=== PATIENT | female | born 1970 | race African-American/Black ===

== ENCOUNTER 2016-11-10 12:20 | Emergency (ER) | payer OTHER ==
[~2016-11-10] VITALS: Ht 165.1 cm; Wt 70.0 kg
[~2016-11-10 12:20] MED LIST: AMIT25TA9 PO; CARI350T PO; DIAZ-56 PO; FAMO20TA8 PO; GABA-531 PO; HYDR200T35 PO; HYDR4TAB56 PO; IBUP-1510 PO; P20 PO; ZOLP10TA6 PO
[2016-11-10 14:17] LABS: BASOPHILS % 0.7 % (0.0-2.0); EOSINOPHILS % 1.1 % (0.0-5.0); HEMATOCRIT. 36.7 % (36.0-48.0); HEMOGLOBIN. 12.1 g/dL (12.0-16.0); LYMPHOCYTES % 31.7 % (20.0-50.0); MEAN CORPUSCULAR HEMOGLOBIN 27.5 pg (28.0-32.0); MEAN CORPUSCULAR HGB CONC 32.9 g/dL (31.0-37.0); MEAN CORPUSCULAR VOLUME 83.6 fL (81.0-99.0); MEAN PLATELET VOLUME 7.5 fl (7.4-10.4); MONOCYTES % 6.9 % (2.0-8.0); NEUTROPHILS % 59.6 % (40.0-76.0); PLATELET 240 x1000/uL (130-400); RED BLOOD CELL COUNT 4.39 mill/uL (4.2-5.4); RED CELL DISTRIBUTION WIDTH 16.3 % (11.6-14.6); WHITE BLOOD COUNT 9.3 x1000/uL (4.5-11.0)
[2016-11-10 14:26] LABS: PROTHROMBIN TIME 10.5 sec
[2016-11-10 14:29] LABS: CHLORIDE 113 mEq/L (98-107); INDEX HEMOLYSI 1 (1-3); INDEX ICTERIC 1 (1-4); INDEX LIPEMIC 1 (1-3)
[2016-11-10 14:36] LABS: ALBUMIN 3.5 g/dL (3.4-5.0); ANION GAP 14; CALCIUM 8.9 mg/dL (8.5-10.1); CARBON DIOXIDE 21 mEq/L (21-32); LIPASE 266 IU/L (73-393); UREA NITROGEN BLOOD 16 mg/dL (7-21)
[2016-11-10 14:39] LABS: ALANINE AMINOTRANSFERASE 15 IU/L (13-61); eGFR 53 mL/min (>60)
[2016-11-10] MEDS ORDERED: HYDROCODONE/ACETAMINOPHEN 5/325MG TABLET PO ONE (15:45)
[2016-11-10 15:51] VITALS: BP 110/71
[2016-11-10 19:54] LABS: CLARITY URINE TURBID (CLEAR); COLOR URINE YELLOW (YELLOW); GLUCOSE URINE NEGATIVE (NEGATIVE); KETONES URINE NEGATIVE (NEGATIVE); LEUKOCYTE ESTERASE URINE 3+ (NEGATIVE); NITRITE URINE NEGATIVE (NEGATIVE); OCCULT BLOOD URINE 3+ (NEGATIVE); PH URINE 5.5 (4.5-8.0); PROTEIN URINE 1+ (NEGATIVE); SPECIFIC GRAVITY URINE 1.025 (1.005-1.030); UROBILINOGEN URINE 0.2 E.U./dL (0.2-1.0)
[2016-11-10 20:04] LABS: *AMPHETAMINES SCREEN URINE NEGATIVE (NEGATIVE); *BARBITURATES SCREEN URINE NEGATIVE (NEGATIVE); *BENZODIAZEPINES SCREEN URINE NEGATIVE (NEGATIVE); *COCAINE SCREEN URINE NEGATIVE (NEGATIVE); ECSTASY MDMA SCREEN URINE NEGATIVE (NEGATIVE); METHADONE URINE SCREEN NEGATIVE (NEGATIVE); OPIATES URINE SCREEN NEGATIVE (NEGATIVE); PHENCYCLIDINE URINE SCREEN NEGATIVE (NEGATIVE)
[2016-11-10 20:07] LABS: CANNABINOID URINE SCREEN PRESUMTIVE POSITIVE (NEGATIVE)
[2016-11-10 20:10] LABS: WBC URINE 25-50 /hpf (0-2)
[2016-11-10 20:11] LABS: BACTERIA URINE 1+; SQUAMOUS EPITHELIAL CELL URINE 1+ /lpf (RARE/1+)
== END 2016-11-10 16:03 | disposition home or self-care (01) ==
LOC: ER 12:22
DX: T63.301A Toxic effect of unspecified spider venom, accidental (unintentional), initial encounter (principal); N39.0 Urinary tract infection, site not specified; G89.29 Other chronic pain; M32.9 Systemic lupus erythematosus, unspecified; I10 Essential (primary) hypertension; M19.90 Unspecified osteoarthritis, unspecified site; F17.200 Nicotine dependence, unspecified, uncomplicated; F12.10 Cannabis abuse, uncomplicated; Z90.49 Acquired absence of other specified parts of digestive tract; Z90.710 Acquired absence of both cervix and uterus; Z88.1 Allergy status to other antibiotic agents; Z88.2 Allergy status to sulfonamides; Z88.8 Allergy status to other drugs, medicaments and biological substances; Z79.899 Other long term (current) drug therapy; W57.XXXA Bitten or stung by nonvenomous insect and other nonvenomous arthropods, initial encounter; Y93.89 Activity, other specified; Y99.8 Other external cause status; Y92.89 Other specified places as the place of occurrence of the external cause
CPT/HCPCS: 36415; 80053; 80305; 81001; 81025; 83690; 85025; 85610; 99284

== ENCOUNTER 2016-12-09 14:54 | Emergency (ER) | payer OTHER ==
[~2016-12-09] VITALS: Ht 165.1 cm; Wt 68.0 kg
[2016-12-09] MEDS ORDERED: MORPHINE SULFATE 4 MG/ML CPJ (NOT FOR IM USE) IV STA (16:02)
[2016-12-09] MEDS ORDERED: ONDANSETRON HCL 4MG/2ML VIAL IV STA (16:02)
[2016-12-09] MEDS ORDERED: DIPHENHYDRAMINE 50MG/ML VIAL IV ONE ×2 (16:15→17:45)
[2016-12-09 16:23] LABS: BASOPHILS % 0.7 % (0.0-2.0); EOSINOPHILS % 1.1 % (0.0-5.0); HEMATOCRIT. 38.8 % (36.0-48.0); HEMOGLOBIN. 12.6 g/dL (12.0-16.0); MEAN CORPUSCULAR HEMOGLOBIN 27.2 pg (28.0-32.0); MEAN CORPUSCULAR VOLUME 83.7 fL (81.0-99.0); MEAN PLATELET VOLUME 7.7 fl (7.4-10.4); MONOCYTES % 8.4 % (2.0-8.0); NEUTROPHILS % 50.8 % (40.0-76.0); PLATELET 247 x1000/uL (130-400); RED BLOOD CELL COUNT 4.64 mill/uL (4.2-5.4)
[2016-12-09 16:34] LABS: HCG SCREEN NEGATIVE
[2016-12-09] MEDS ORDERED: MORPHINE SULFATE 4 MG/ML CPJ (NOT FOR IM USE) IV ONE (17:30)
[2016-12-09] MEDS ORDERED: DIPHENHYDRAMINE 50MG/ML VIAL ONE (17:53)
[2016-12-09] MEDS ORDERED: HYDROCODONE/ACETAMINOPHEN 5/325MG TABLET PO ONE (18:30)
[2016-12-09 18:45] VITALS: BP 144/93
== END 2016-12-09 19:30 | disposition home or self-care (01) ==
LOC: ER 19:05
DX: M32.9 Systemic lupus erythematosus, unspecified (principal); I10 Essential (primary) hypertension; R52 Pain, unspecified; F17.210 Nicotine dependence, cigarettes, uncomplicated; F12.90 Cannabis use, unspecified, uncomplicated; Z96.651 Presence of right artificial knee joint; Z88.1 Allergy status to other antibiotic agents; Z88.3 Allergy status to other anti-infective agents; Z88.2 Allergy status to sulfonamides; Z98.890 Other specified postprocedural states; Z90.49 Acquired absence of other specified parts of digestive tract; Z90.710 Acquired absence of both cervix and uterus
CPT/HCPCS: 36415; 80048; 84703; 85025; 96374; 96375; 96376; 99284; J1200; J2270; J2405

== ENCOUNTER 2017-06-09 21:08 | Emergency (ER) | payer OTHER ==
[~2017-06-09] VITALS: Ht 152.4 cm; Wt 71.0 kg
[~2017-06-09 21:08] MED LIST changes: -DIAZ-56 PO; +DIAZ5TAB PO; -IBUP-1510 PO; +IBUP-2030 PO
[2017-06-09] MEDS ORDERED: SODIUM CHLORIDE 0.9% 1,000 ML IV ONE (22:35)
[2017-06-09] MEDS ORDERED: KETOROLAC 30MG/ML VIAL IV STA (22:35)
[2017-06-09 23:02] LABS: BASOPHILS % 0.9 % (0.0-2.0); HEMATOCRIT. 37.6 % (36.0-48.0); HEMOGLOBIN. 12.7 g/dL (12.0-16.0); LYMPHOCYTES % 33.4 % (20.0-50.0); MEAN CORPUSCULAR HEMOGLOBIN 28.3 pg (28.0-32.0); MEAN CORPUSCULAR VOLUME 84.1 fL (81.0-99.0); MEAN PLATELET VOLUME 7.3 fl (7.4-10.4); MONOCYTES % 7.9 % (2.0-8.0); NEUTROPHILS % 56.8 % (40.0-76.0); PLATELET 281 x1000/uL (130-400); RED BLOOD CELL COUNT 4.47 mill/uL (4.2-5.4); RED CELL DISTRIBUTION WIDTH 15.1 % (11.6-14.6)
[2017-06-09 23:07] LABS: CHLORIDE 113 mEq/L (98-107); PROTHROMBIN TIME 10.1 sec (9.4-11.6)
[2017-06-09 23:14] LABS: CARBON DIOXIDE 22 mEq/L (21-32)
[2017-06-09 23:15] LABS: TROPONIN I < 0.02 ng/mL (0.00-0.04)
[2017-06-09 23:16] LABS: *AMPHETAMINES SCREEN URINE NEGATIVE (NEGATIVE); *BARBITURATES SCREEN URINE NEGATIVE (NEGATIVE); *BENZODIAZEPINES SCREEN URINE NEGATIVE (NEGATIVE); *COCAINE SCREEN URINE NEGATIVE (NEGATIVE); METHADONE URINE SCREEN NEGATIVE (NEGATIVE); OPIATES URINE SCREEN NEGATIVE (NEGATIVE); PHENCYCLIDINE URINE SCREEN NEGATIVE (NEGATIVE)
[2017-06-09 23:17] LABS: CANNABINOID URINE SCREEN PRESUMTIVE POSITIVE (NEGATIVE)
[2017-06-10] MEDS ORDERED: HYDROCODONE/ACETAMINOPHEN 5/325MG TABLET PO ONE
[2017-06-10] MEDS ORDERED: MAGNESIUM/ALUMINUM HYDROXIDE/SIMETHICONE 30ML UDC PO ONE (01:15)
[2017-06-10] MEDS ORDERED: FAMOTIDINE 20MG TABLET PO ONE (01:15)
[2017-06-10] MEDS ORDERED: SODIUM CHLORIDE 0.9% 1,000 ML IV ONE (03:15)
[2017-06-10 03:53] VITALS: BP 129/91
[2017-06-10] MEDS ORDERED: IOHEXOL-350 100 ML BOTTLE ONE (04:12)
== END 2017-06-10 05:12 | disposition home or self-care (01) ==
LOC: ER 21:49
DX: R07.9 Chest pain, unspecified (principal); N28.9 Disorder of kidney and ureter, unspecified; I10 Essential (primary) hypertension; M19.90 Unspecified osteoarthritis, unspecified site; M32.9 Systemic lupus erythematosus, unspecified; F17.200 Nicotine dependence, unspecified, uncomplicated; F12.10 Cannabis abuse, uncomplicated; Z88.1 Allergy status to other antibiotic agents; Z88.2 Allergy status to sulfonamides; Z88.3 Allergy status to other anti-infective agents; Z90.710 Acquired absence of both cervix and uterus; Z96.649 Presence of unspecified artificial hip joint
CPT/HCPCS: 36415; 71010; 71275; 80053; 80305; 81025; 84484; 85025; 85610; 93005; 96361; 96374; 99291; J1885; J7030; Q9967

== ENCOUNTER 2018-09-01 10:48 | Emergency (ER) | payer OTHER ==
[~2018-09-01] VITALS: Ht 165.1 cm; Wt 70.0 kg
[~2018-09-01 10:48] MED LIST changes: -CARI350T PO; +DIPH25CA83 PO; +OXYC-105 PO; +S350 PO
[2018-09-01] MEDS ORDERED: MORPHINE SULFATE 4 MG/ML CPJ (NOT FOR IM USE) IV STA (15:46)
[2018-09-01] MEDS ORDERED: SODIUM CHLORIDE 0.9% 1,000 ML IV ONE (15:46)
[2018-09-01] MEDS ORDERED: ONDANSETRON HCL 4MG/2ML INJ IV STA (15:46)
[2018-09-01] MEDS ORDERED: ASPIRIN 81MG TABLET PO ONE (16:00)
[2018-09-01 16:46] LABS: BASOPHILS % 0.7 % (0.0-2.0); EOSINOPHILS % 0.9 % (0.0-5.0); HEMOGLOBIN. 12.6 g/dL (12.0-16.0); LYMPHOCYTES % 37.6 % (20.0-50.0); MEAN CORPUSCULAR HEMOGLOBIN 27.5 pg (28.0-32.0); MEAN CORPUSCULAR VOLUME 85.1 fL (81.0-99.0); MEAN PLATELET VOLUME 7.8 fl (7.4-10.4); MONOCYTES % 5.8 % (2.0-8.0); PLATELET 278 x1000/uL (130-400); RED BLOOD CELL COUNT 4.58 mill/uL (4.2-5.4); RED CELL DISTRIBUTION WIDTH 16.2 % (11.6-14.6)
[2018-09-01 16:50] LABS: CHLORIDE 115 mEq/L (98-107)
[2018-09-01 16:54] LABS: D-DIMER 0.41 mg/L FEU (<0.50); HCG SCREEN NEGATIVE; PARTIAL THROMBOPLASTIN TIME 27.2 sec (23.4-31.0); PROTHROMBIN TIME 9.9 sec (9.1-11.1)
[2018-09-01] MEDS: NITROGLYCERIN 0.4MG TABLET SL SL PRN ×2 (16:55→22:04)
[2018-09-01 17:08] LABS: CLARITY URINE CLEAR (CLEAR); COLOR URINE YELLOW (YELLOW); KETONES URINE NEGATIVE (NEGATIVE); LEUKOCYTE ESTERASE URINE 2+ (NEGATIVE); NITRITE URINE NEGATIVE (NEGATIVE); OCCULT BLOOD URINE NEGATIVE (NEGATIVE); PH URINE 5.5 (4.5-8.0); PROTEIN URINE 1+ (NEGATIVE); SPECIFIC GRAVITY URINE 1.016 (1.005-1.030); UROBILINOGEN URINE 0.2 E.U./dL (0.2-1.0)
[2018-09-01] MEDS ORDERED: CEFTRIAXONE 1 G PREMIX 50 ML IV ONE (17:30)
[2018-09-01] MEDS ORDERED: MAGNESIUM/ALUMINUM HYDROXIDE/SIMETHICONE 30ML UDC PO PRN (21:45)
[2018-09-01] MEDS ORDERED: ACETAMINOPHEN 325MG TABLET PO PRN (21:45)
[2018-09-01] MEDS ORDERED: CLONIDINE 0.1MG TABLET PO PRN (21:45)
[2018-09-01] MEDS ORDERED: ENOXAPARIN 40MG/0.4ML SYR SUBCUT SCH (21:45)
[2018-09-01] MEDS ORDERED: HYDROMORPHONE HCL/PF 2MG/ML CPJ IV PRN (21:45)
[2018-09-01] MEDS ORDERED: ONDANSETRON HCL 4MG/2ML INJ IV PRN (21:45)
[2018-09-01] MEDS ORDERED: HYDROCODONE/ACETAMINOPHEN 10/325MG TABLET PO PRN (21:45)
[2018-09-01] MEDS ORDERED: LORAZEPAM 2MG/ML CPJ IV PRN (21:45)
[2018-09-01] MEDS ORDERED: GUAIFENESIN 200MG/10ML SUGAR FREE UDC PO PRN (21:45)
[2018-09-01] MEDS ORDERED: HYDRALAZINE 20MG/ML VIAL IV PRN (21:45)
[2018-09-01] MEDS ORDERED: DOCUSATE SODIUM 100MG CAPSULE PO PRN (21:45)
[2018-09-01] MEDS ORDERED: IPRATROPIUM/ALBUTEROL 0.5-3(2.5)MG/3ML NEB INH PRN (21:45)
[2018-09-01] MEDS ORDERED: SODIUM CHLORIDE 0.9% INJ 3ML FLUSH IVF SCH (22:00)
[2018-09-01 22:11] VITALS: BP 116/68
[2018-09-02] MEDS ORDERED: ASPIRIN 81MG EC TABLET PO SCH (09:00)
== END 2018-09-01 22:58 | disposition short-term general hospital (02) ==
LOC: ER 10:48 → EDBEDREQ 17:35 → ER 22:58 → CANBEDREQ 23:07
DX: R07.89 Other chest pain (principal); I10 Essential (primary) hypertension; M32.9 Systemic lupus erythematosus, unspecified; F17.210 Nicotine dependence, cigarettes, uncomplicated; E86.0 Dehydration; F12.10 Cannabis abuse, uncomplicated; M19.90 Unspecified osteoarthritis, unspecified site; J45.909 Unspecified asthma, uncomplicated; Z96.649 Presence of unspecified artificial hip joint; Z90.710 Acquired absence of both cervix and uterus; Z88.3 Allergy status to other anti-infective agents; Z88.2 Allergy status to sulfonamides; Z87.19 Personal history of other diseases of the digestive system
CPT/HCPCS: 36415; 71045; 80053; 81003; 83880; 84484; 84703; 85025; 85379; 85610; 85730; 93005; 96361; 96365; 96375; 96376; 99284; J0696; J2270; J2405; J7030; 99285

== ENCOUNTER 2018-12-19 11:40 | Emergency (ER) | payer OTHER ==
[~2018-12-19] VITALS: Ht 165.1 cm; Wt 72.7 kg
[2018-12-19 14:38] LABS: BASOPHILS % 0.4 % (0.0-2.0); EOSINOPHILS % 1.3 % (0.0-5.0); HEMATOCRIT. 39.2 % (36.0-48.0); HEMOGLOBIN. 12.6 g/dL (12.0-16.0); LYMPHOCYTES % 35.9 % (20.0-50.0); MEAN CORPUSCULAR HEMOGLOBIN 27.5 pg (28.0-32.0); MEAN CORPUSCULAR VOLUME 85.4 fL (81.0-99.0); MEAN PLATELET VOLUME 7.8 fl (7.4-10.4); MONOCYTES % 6.8 % (2.0-8.0); NEUTROPHILS % 55.6 % (40.0-76.0); PLATELET 254 x1000/uL (130-400); RED BLOOD CELL COUNT 4.59 mill/uL (4.2-5.4); RED CELL DISTRIBUTION WIDTH 15.4 % (11.6-14.6)
[2018-12-19 14:43] LABS: CHLORIDE 117 mEq/L (98-107)
[2018-12-19] MEDS ORDERED: MORPHINE SULFATE 4 MG/ML CPJ (NOT FOR IM USE) IV ONE (14:45)
[2018-12-19] MEDS ORDERED: KETOROLAC 30MG/ML VIAL IV ONE (14:45)
[2018-12-19] MEDS ORDERED: DIPHENHYDRAMINE 50MG/ML VIAL IV ONE (15:15)
[2018-12-19] MEDS ORDERED: HYDROCODONE/ACETAMINOPHEN 5/325MG TABLET PO ONE (17:45)
[2018-12-19 20:00] VITALS: BP 123/67
== END 2018-12-19 21:05 | disposition short-term general hospital (02) ==
LOC: ER 11:40
DX: R07.89 Other chest pain (principal); M19.90 Unspecified osteoarthritis, unspecified site; I10 Essential (primary) hypertension; M06.9 Rheumatoid arthritis, unspecified; Z88.1 Allergy status to other antibiotic agents; Z88.2 Allergy status to sulfonamides; Z88.8 Allergy status to other drugs, medicaments and biological substances; Z79.899 Other long term (current) drug therapy; Z96.643 Presence of artificial hip joint, bilateral
CPT/HCPCS: 36415; 71045; 80053; 83880; 84484; 85025; 93005; 96374; 96375; 99285; J1200; J1885; J2270

== ENCOUNTER 2019-03-11 19:37 | Emergency (ER) | payer OTHER ==
[~2019-03-11] VITALS: Ht 167.6 cm; Wt 73.0 kg
[2019-03-11] MEDS ORDERED: MORPHINE SULFATE 4 MG/ML CPJ (NOT FOR IM USE) IV STA (20:11)
[2019-03-11] MEDS ORDERED: SODIUM CHLORIDE 0.9% 1,000 ML IV ONE (20:11)
[2019-03-11] MEDS ORDERED: ONDANSETRON HCL 4MG/2ML INJ IV STA (20:11)
[2019-03-11] MEDS ORDERED: ASPIRIN 81MG TABLET PO ONE (20:15)
[2019-03-11] MEDS ORDERED: NITROGLYCERIN 0.4MG TABLET SL SL PRN (20:15)
[2019-03-11] MEDS ORDERED: HYDROMORPHONE HCL/PF 2MG/ML CPJ IV ONE (21:45)
[2019-03-11 21:46] LABS: HCG SCREEN NEGATIVE
[2019-03-11 21:47] LABS: CHLORIDE 114 mEq/L (98-107)
[2019-03-11 21:50] LABS: BASOPHILS % 0.7 % (0.0-2.0); EOSINOPHILS % 0.7 % (0.0-5.0); HEMATOCRIT. 34.6 % (36.0-48.0); HEMOGLOBIN. 11.5 g/dL (12.0-16.0); LYMPHOCYTES % 39.9 % (20.0-50.0); MEAN CORPUSCULAR HEMOGLOBIN 27.7 pg (28.0-32.0); MEAN CORPUSCULAR VOLUME 83.4 fL (81.0-99.0); MEAN PLATELET VOLUME 7.9 fl (7.4-10.4); MONOCYTES % 7.8 % (2.0-8.0); NEUTROPHILS % 50.9 % (40.0-76.0); PLATELET 262 x1000/uL (130-400); RED BLOOD CELL COUNT 4.14 mill/uL (4.2-5.4); RED CELL DISTRIBUTION WIDTH 15.7 % (11.6-14.6)
[2019-03-11 21:54] LABS: D-DIMER 1.2 mg/L FEU (<0.50); PARTIAL THROMBOPLASTIN TIME 24.4 sec (23.4-31.0); PROTHROMBIN TIME 9.8 sec (9.6-11.0)
[2019-03-11 23:35] VITALS: BP 140/71
== END 2019-03-12 00:26 | disposition short-term general hospital (02) ==
LOC: ER 19:37 → CANBEDREQ 23:49 → ER 03-12 00:26
DX: R07.89 Other chest pain (principal); I10 Essential (primary) hypertension; R94.39 Abnormal result of other cardiovascular function study; M32.9 Systemic lupus erythematosus, unspecified; F12.10 Cannabis abuse, uncomplicated; F17.210 Nicotine dependence, cigarettes, uncomplicated; Z90.49 Acquired absence of other specified parts of digestive tract; Z88.3 Allergy status to other anti-infective agents; Z88.2 Allergy status to sulfonamides
CPT/HCPCS: 36415; 71045; 80053; 83690; 83880; 84484; 84703; 85025; 85379; 85610; 85730; 93005; 96374; 96375; 99285; J1170; J2270; J2405; J7030; Z7610

== ENCOUNTER 2019-08-30 11:27 | Emergency (ER) | payer MEDICAID, OTHER ==
[~2019-08-30] VITALS: Ht 162.6 cm; Wt 61.0 kg
[~2019-08-30 11:27] MED LIST changes: +CARI350T28 PO; -S350 PO
[2019-08-30] MEDS ORDERED: HYDROCODONE/ACETAMINOPHEN 5/325MG TABLET PO ONE (16:15)
[2019-08-30 17:24] VITALS: BP 172/95
== END 2019-08-30 17:31 | disposition home or self-care (01) ==
LOC: ER 11:27
DX: G89.29 Other chronic pain (principal); M54.9 Dorsalgia, unspecified; M79.641 Pain in right hand; I10 Essential (primary) hypertension; F12.10 Cannabis abuse, uncomplicated; Z88.1 Allergy status to other antibiotic agents; Z88.8 Allergy status to other drugs, medicaments and biological substances; Z88.2 Allergy status to sulfonamides; Z79.899 Other long term (current) drug therapy; Z90.49 Acquired absence of other specified parts of digestive tract; Z98.890 Other specified postprocedural states
CPT/HCPCS: 72148; 73110; 73130; 99285

== ENCOUNTER 2019-10-06 09:51 | Emergency (ER) | payer MEDICAID ==
[~2019-10-06] VITALS: Ht 170.2 cm; Wt 69.0 kg
[2019-10-06] MEDS ORDERED: MAGNESIUM/ALUMINUM HYDROXIDE/SIMETHICONE 30ML UDC PO ONE (11:15)
[2019-10-06] MEDS ORDERED: DICYCLOMINE 10 MG/5 ML ORAL SYR PO ONE (11:15)
[2019-10-06] MEDS ORDERED: VISCOUS LIDOCAINE 2% 15 ML UDC PO ONE (11:15)
[2019-10-06 11:48] LABS: CHLORIDE 110 mEq/L (98-107)
[2019-10-06 11:53] LABS: BASOPHILS % 0.5 % (0.0-2.0); EOSINOPHILS % 0.5 % (0.0-5.0); HEMATOCRIT. 40.4 % (36.0-48.0); LYMPHOCYTES % 34.7 % (20.0-50.0); MEAN CORPUSCULAR HEMOGLOBIN 27.2 pg (28.0-32.0); MEAN CORPUSCULAR VOLUME 84.4 fL (81.0-99.0); MEAN PLATELET VOLUME 8.3 fl (7.4-10.4); MONOCYTES % 7.3 % (2.0-8.0); PLATELET 251 x1000/uL (130-400); RED BLOOD CELL COUNT 4.79 mill/uL (4.2-5.4); RED CELL DISTRIBUTION WIDTH 15.6 % (11.6-14.6)
[2019-10-06] MEDS ORDERED: ACETAMINOPHEN 325MG TABLET PO ONE (12:00)
[2019-10-06] MEDS ORDERED: MORPHINE SULFATE 4 MG/ML CPJ (NOT FOR IM USE) IV STA (12:51)
[2019-10-06] MEDS ORDERED: ONDANSETRON HCL 4MG/2ML INJ IV STA (12:51)
[2019-10-06] MEDS ORDERED: DIPHENHYDRAMINE 25MG CAPSULE PO ONE (13:15)
[2019-10-06 13:41] VITALS: BP 168/90
== END 2019-10-06 13:46 | disposition home or self-care (01) ==
LOC: ER 10:00
DX: R07.89 Other chest pain (principal); I10 Essential (primary) hypertension; M32.9 Systemic lupus erythematosus, unspecified; F12.10 Cannabis abuse, uncomplicated; F99 Mental disorder, not otherwise specified; Z90.49 Acquired absence of other specified parts of digestive tract; Z88.1 Allergy status to other antibiotic agents; Z88.5 Allergy status to narcotic agent; Z88.2 Allergy status to sulfonamides
CPT/HCPCS: 36415; 71045; 80053; 83690; 84484; 85025; 93005; 96374; 96375; 99285; J2270; J2405; Q0163

== ENCOUNTER 2020-08-14 09:00 | Emergency (ER) | payer MEDICAID, OTHER ==
[~2020-08-14] VITALS: Ht 167.6 cm; Wt 77.5 kg
[~2020-08-14 09:00] MED LIST changes: -GABA-531 PO; +GABA-532 PO
[2020-08-14] MEDS ORDERED: SODIUM CHLORIDE 0.9% 1,000 ML IV ONE ×2 (10:30→14:30)
[2020-08-14] MEDS ORDERED: ONDANSETRON HCL 4MG/2ML INJ IM ONE ×2 (10:30→11:15)
[2020-08-14] MEDS ORDERED: FENTANYL CITRATE/PF 50MCG/ML 2ML VIAL IV ONE (11:15)
[2020-08-14 12:08] LABS: BASOPHILS % 0.2 % (0.0-2.0); HEMATOCRIT. 36.9 % (36.0-48.0); HEMOGLOBIN. 12.2 g/dL (12.0-16.0); MEAN CORPUSCULAR HEMOGLOBIN 27.2 pg (28.0-32.0); MEAN CORPUSCULAR VOLUME 82.4 fL (81.0-99.0); MEAN PLATELET VOLUME 8.2 fl (7.4-10.4); MONOCYTES % 4.1 % (2.0-8.0); NEUTROPHILS % 80.7 % (40.0-76.0); PLATELET 183 x1000/uL (130-400); RED BLOOD CELL COUNT 4.48 mill/uL (4.2-5.4); RED CELL DISTRIBUTION WIDTH 15.2 % (11.6-14.6)
[2020-08-14 12:16] LABS: CHLORIDE 111 mEq/L (98-107)
[2020-08-14 12:28] LABS: CREATINE KINASE 94 IU/L (26-192)
[2020-08-14] MEDS ORDERED: IOHEXOL-350 100 ML BOTTLE ONE (14:04)
[2020-08-14] MEDS ORDERED: ONDANSETRON HCL 4MG/2ML INJ IV ONE (14:30)
[2020-08-14] MEDS ORDERED: ENOXAPARIN 40MG/0.4ML SYR SUBCUT ONE (14:45)
[2020-08-14 15:46] LABS: *AMPHETAMINES SCREEN URINE NEGATIVE (NEGATIVE); *BARBITURATES SCREEN URINE NEGATIVE (NEGATIVE); *BENZODIAZEPINES SCREEN URINE NEGATIVE (NEGATIVE)
[2020-08-14 15:47] LABS: *COCAINE SCREEN URINE NEGATIVE (NEGATIVE); CANNABINOID URINE SCREEN PRESUMTIVE POSITIVE (NEGATIVE); METHADONE URINE SCREEN NEGATIVE (NEGATIVE); OPIATES URINE SCREEN NEGATIVE (NEGATIVE); PHENCYCLIDINE URINE SCREEN NEGATIVE (NEGATIVE)
[2020-08-14 16:47] VITALS: BP 165/92
== END 2020-08-14 18:00 | disposition short-term general hospital (02) ==
LOC: ER 09:00
DX: N17.8 Other acute kidney failure (principal); R11.10 Vomiting, unspecified; F41.9 Anxiety disorder, unspecified; J44.9 Chronic obstructive pulmonary disease, unspecified; I10 Essential (primary) hypertension; Z90.49 Acquired absence of other specified parts of digestive tract; Z79.899 Other long term (current) drug therapy; Z88.2 Allergy status to sulfonamides; Z88.6 Allergy status to analgesic agent
CPT/HCPCS: 36415; 71045; 74177; 80053; 80305; 82550; 83605; 83690; 83880; 84484; 85025; 85651; 86140; 93005; 96361; 96372; 96374; 99285; C9803; J1650; J2405; J3010; J7030; Q9967; U0003

== ENCOUNTER 2020-09-06 11:49 | Emergency (ER) | payer OTHER ==
[~2020-09-06] VITALS: Ht 165.1 cm; Wt 63.6 kg
[2020-09-06 11:50] VITALS: BP 146/99
== END 2020-09-06 13:10 | disposition home or self-care (01) ==
LOC: ER 11:49
DX: K12.0 Recurrent oral aphthae (principal); J96.90 Respiratory failure, unspecified, unspecified whether with hypoxia or hypercapnia; F32.9 Major depressive disorder, single episode, unspecified; M19.90 Unspecified osteoarthritis, unspecified site; I10 Essential (primary) hypertension; M32.9 Systemic lupus erythematosus, unspecified; F17.200 Nicotine dependence, unspecified, uncomplicated; Z88.2 Allergy status to sulfonamides; Z88.3 Allergy status to other anti-infective agents; Z88.6 Allergy status to analgesic agent; Z88.8 Allergy status to other drugs, medicaments and biological substances; Z86.16 Personal history of COVID-19; Z90.49 Acquired absence of other specified parts of digestive tract; Z20.822 Contact with and (suspected) exposure to COVID-19; Z99.81 Dependence on supplemental oxygen
CPT/HCPCS: 99283; Z7610

== ENCOUNTER 2021-08-30 12:07 | Emergency (ER) | payer OTHER ==
[~2021-08-30] VITALS: Ht 165.1 cm; Wt 75.0 kg
[2021-08-30] MEDS ORDERED: METHOCARBAMOL 500MG TABLET PO ONE (13:45)
[2021-08-30] MEDS ORDERED: OXYCODONE HCL/ACETAMINOPHEN 5/325MG TABLET PO ONE (13:45)
[2021-08-30] MEDS ORDERED: NAPR375T5 MT (16:43)
[2021-08-30] MEDS ORDERED: METH-773 MT (16:43)
[2021-08-30 17:05] VITALS: BP 150/88
== END 2021-08-30 17:17 | disposition home or self-care (01) ==
LOC: ER 12:07
DX: S20.219A Contusion of unspecified front wall of thorax, initial encounter (principal); I10 Essential (primary) hypertension; J45.909 Unspecified asthma, uncomplicated; Z88.6 Allergy status to analgesic agent; Z88.2 Allergy status to sulfonamides; Z79.899 Other long term (current) drug therapy; Z90.49 Acquired absence of other specified parts of digestive tract; Z86.73 Personal history of transient ischemic attack (TIA), and cerebral infarction without residual deficits; V49.9XXA Car occupant (driver) (passenger) injured in unspecified traffic accident, initial encounter; Y93.89 Activity, other specified; Y92.89 Other specified places as the place of occurrence of the external cause; Y99.8 Other external cause status
CPT/HCPCS: 71045; 93005; 99285

== ENCOUNTER 2022-11-27 06:01 | Emergency (ER) | payer OTHER ==
[~2022-11-27] VITALS: Ht 165.1 cm; Wt 69.0 kg
[~2022-11-27 06:01] MED LIST changes: +METH-773 MT; +NAPR375T5 MT
[2022-11-27] MEDS ORDERED: MORPHINE SULFATE 4 MG/ML CPJ (NOT FOR IM USE) IV ONE (06:15)
[2022-11-27] MEDS ORDERED: DIPHENHYDRAMINE 50MG/ML VIAL IV ONE (07:00)
[2022-11-27] MEDS ORDERED: LIDOCAINE 5% PATCH TOP STA (07:05)
[2022-11-27 08:27] LABS: BASOPHILS % 0.7 % (0.0-2.0); HEMATOCRIT. 37.6 % (36.0-48.0); HEMOGLOBIN. 12.3 g/dL (12.0-16.0); LYMPHOCYTES % 33.3 % (20.0-50.0); MEAN CORPUSCULAR HEMOGLOBIN 28.4 pg (28.0-32.0); MEAN CORPUSCULAR VOLUME 87.3 fL (81.0-99.0); MEAN PLATELET VOLUME 8.5 fl (7.4-10.4); MONOCYTES % 7.7 % (2.0-8.0); NEUTROPHILS % 57.3 % (40.0-76.0); PLATELET 232 x1000/uL (130-400); RED BLOOD CELL COUNT 4.31 mill/uL (4.2-5.4); RED CELL DISTRIBUTION WIDTH 16.2 % (11.6-14.6)
[2022-11-27 08:38] LABS: D-DIMER 1.11 mg/L FEU (<0.50); PROTHROMBIN TIME 10.3 sec (9.6-11.0)
[2022-11-27 08:45] LABS: CHLORIDE 120 mEq/L (98-107)
[2022-11-27] MEDS ORDERED: ACETAMINOPHEN 325MG TABLET PO ONE (08:45)
[2022-11-27 09:02] LABS: HCG SCREEN NEGATIVE
[2022-11-27 09:30] VITALS: BP 177/98
[2022-11-27] MEDS ORDERED: IOHEXOL-350 100 ML BOTTLE ONE (12:59)
== END 2022-11-27 14:00 | disposition left against medical advice (07) ==
LOC: ER 06:01 → CANBEDREQ 11:03 → ER 14:00
DX: M25.512 Pain in left shoulder (principal); J45.909 Unspecified asthma, uncomplicated; F32.9 Major depressive disorder, single episode, unspecified; I10 Essential (primary) hypertension; Z90.49 Acquired absence of other specified parts of digestive tract; Z79.899 Other long term (current) drug therapy
CPT/HCPCS: 36415; 71045; 71250; 80053; 84484; 84703; 85025; 85379; 85610; 96374; 96375; 99285; J1200; J2270; Q9967; Z7610

== ENCOUNTER 2022-12-28 07:12 | Emergency (ER) | payer OTHER ==
[~2022-12-28] VITALS: Ht 162.6 cm; Wt 77.0 kg
[2022-12-28] MEDS ORDERED: ONDANSETRON HCL 4MG/2ML INJ IV STA (07:19)
[2022-12-28] MEDS ORDERED: TRAMADOL 50MG TABLET PO ONE (09:00)
[2022-12-28] MEDS ORDERED: MORPHINE SULFATE 4 MG/ML CPJ (NOT FOR IM USE) IV ONE (09:15)
[2022-12-28] MEDS ORDERED: DIPHENHYDRAMINE 50MG/ML VIAL IV ONE (09:15)
[2022-12-28 09:41] LABS: BASOPHILS % 0.5 % (0.0-2.0); HEMATOCRIT. 37.3 % (36.0-48.0); HEMOGLOBIN. 12.3 g/dL (12.0-16.0); LYMPHOCYTES % 15.3 % (20.0-50.0); MEAN CORPUSCULAR VOLUME 85.3 fL (81.0-99.0); MEAN PLATELET VOLUME 8.3 fl (7.4-10.4); MONOCYTES % 6.1 % (2.0-8.0); NEUTROPHILS % 78.1 % (40.0-76.0); PLATELET 236 x1000/uL (130-400); RED BLOOD CELL COUNT 4.37 mill/uL (4.2-5.4); RED CELL DISTRIBUTION WIDTH 15.5 % (11.6-14.6)
[2022-12-28 09:53] LABS: CHLORIDE 119 mEq/L (98-107)
[2022-12-28 10:03] LABS: PROTHROMBIN TIME 10.3 sec (9.6-11.0)
[2022-12-28 10:10] LABS: HCG SCREEN NEGATIVE
[2022-12-28 12:00] VITALS: BP 150/85
== END 2022-12-28 12:39 | disposition short-term general hospital (02) ==
LOC: ER 07:35 → CANBEDREQ 10:06 → ER 12:39
DX: N28.89 Other specified disorders of kidney and ureter (principal); R10.84 Generalized abdominal pain; R11.2 Nausea with vomiting, unspecified; J45.909 Unspecified asthma, uncomplicated; F32.9 Major depressive disorder, single episode, unspecified; I10 Essential (primary) hypertension; Z86.73 Personal history of transient ischemic attack (TIA), and cerebral infarction without residual deficits; Z20.822 Contact with and (suspected) exposure to COVID-19
CPT/HCPCS: 36415; 74176; 80053; 83690; 84703; 85025; 85610; 87426; 93005; 96374; 96375; 99285; C9803; J1200; J2270; J2405; Z7610

== ENCOUNTER → 2023-04-29 | Emergency (ER) | payer OTHER ==
[~2023-04-29] VITALS: Ht 170.2 cm; Wt 54.0 kg
[~2023-04-29] MED LIST changes: +ACETAMINOPHEN 325MG TABLET PO ONE; +AMLO5TAB88 PO; -CARI350T28 PO; -HYDR4TAB56 PO; +IBUPROFEN 600MG TABLET PO ONE; +KEPP500 MT; -NAPR375T5 MT; -OXYC-105 PO; +QUET25TA PO; -ZOLP10TA6 PO
[2023-04-29 17:52] VITALS: BP 221/125; PULSE 76; RESP 20; TEMP 98.5; O2SAT 100
== END ==
LOC: ER 17:53
DX: S99.911A Unspecified injury of right ankle, initial encounter (principal); S69.92XA Unspecified injury of left wrist, hand and finger(s), initial encounter; I10 Essential (primary) hypertension; J45.909 Unspecified asthma, uncomplicated; Z88.6 Allergy status to analgesic agent; Z88.5 Allergy status to narcotic agent; Z88.1 Allergy status to other antibiotic agents; Z88.2 Allergy status to sulfonamides; Z79.899 Other long term (current) drug therapy; Z98.890 Other specified postprocedural states; Z86.73 Personal history of transient ischemic attack (TIA), and cerebral infarction without residual deficits; X50.0XXA Overexertion from strenuous movement or load, initial encounter; Y93.89 Activity, other specified; Y92.89 Other specified places as the place of occurrence of the external cause; Y99.8 Other external cause status
CPT/HCPCS: 73110; 73610; 73630; 99284

== ENCOUNTER 2023-11-21 09:26 | Emergency (ER) | payer OTHER, MEDICAID ==
[~2023-11-21] VITALS: Ht 165.1 cm; Wt 72.5 kg
[~2023-11-21 09:26] MED LIST changes: -ACETAMINOPHEN 325MG TABLET PO ONE; +ASPI-1406 PO; +ATOR20TA65 PO; -IBUPROFEN 600MG TABLET PO ONE; +LIDO700A30 TP; +OMEP20CA14 PO
[2023-11-21 09:29] VITALS: O2SAT 99
[2023-11-21 13:30] VITALS: BP 141/75; PULSE 80; TEMP 98
[2023-11-21 13:43] VITALS: RESP 16
[2023-11-21] MEDS: HYDROCODONE/ACETAMINOPHEN 5/325MG TABLET PO ONE (13:43)
== END 2023-11-21 13:52 | disposition home or self-care (01) ==
LOC: ER 09:26
DX: M79.671 Pain in right foot (principal); M79.672 Pain in left foot; M87.9 Osteonecrosis, unspecified; J45.909 Unspecified asthma, uncomplicated; F32.9 Major depressive disorder, single episode, unspecified; I10 Essential (primary) hypertension; Z86.73 Personal history of transient ischemic attack (TIA), and cerebral infarction without residual deficits
CPT/HCPCS: 73630; 99283

== ENCOUNTER 2024-03-03 09:37 | Emergency (ER) | payer MEDICAID ==
[~2024-03-03] VITALS: Ht 165.1 cm; Wt 77.0 kg
[~2024-03-03 09:37] MED LIST changes: -AMIT25TA9 PO; +AMLO10TA80 PO; -AMLO5TAB88 PO; -ATOR20TA65 PO; -DIAZ5TAB PO; -DIPH25CA83 PO; +DIPH50CA38 PO; -FAMO20TA8 PO; +FURO-151 MT; +HYDR50TA39 PO; +IBUP-2029 PO; -IBUP-2030 PO; -KEPP500 MT; -METH-773 MT; -OMEP20CA14 PO; +OXYC1TAB12 PO; -P20 PO; +PRED10TA PO; +QUET100T34 PO; -QUET25TA PO; +TIZA-204 PO
[2024-03-03 09:41] VITALS: BP 158/97; RESP 18; TEMP 98.6; O2SAT 98
== END 2024-03-03 14:30 | disposition home or self-care (01) ==
LOC: ER 09:37
DX: M79.671 Pain in right foot (principal); I10 Essential (primary) hypertension; Z88.6 Allergy status to analgesic agent; Z88.1 Allergy status to other antibiotic agents; Z88.2 Allergy status to sulfonamides; Z79.899 Other long term (current) drug therapy; Z98.890 Other specified postprocedural states; Z86.73 Personal history of transient ischemic attack (TIA), and cerebral infarction without residual deficits; Z79.82 Long term (current) use of aspirin
CPT/HCPCS: 93971; 73630; 99284; Z7610 ×2

== ENCOUNTER 2024-04-19 13:14 | Emergency (ER) | payer MEDICAID ==
[~2024-04-19] VITALS: Ht 165.1 cm; Wt 91.0 kg
[~2024-04-19 13:14] MED LIST changes: +ATOR80TA MT
[2024-04-19 13:33] VITALS: O2SAT 99
[2024-04-19 15:30] LABS: CHLORIDE 116 mEq/L (98-107); POTASSIUM 4.6 mEq/L (3.5-5.1); SODIUM 141 mEq/L (136-145)
[2024-04-19 15:31] LABS: CARBON DIOXIDE 18 mEq/L (21-32)
[2024-04-19 15:36] LABS: BASOPHILS % 0.6 % (0.0-2.0); EOSINOPHILS % 0.1 % (0.0-5.0); GLUCOSE 81 mg/dL (70-105); LYMPHOCYTES % 9.3 % (20.0-50.0); MEAN CORPUSCULAR HEMOGLOBIN 27.6 pg (28.0-32.0); MEAN CORPUSCULAR HGB CONC 31.4 g/dL (31.0-37.0); MEAN CORPUSCULAR VOLUME 87.9 fL (81.0-99.0); MONOCYTES % 2.5 % (2.0-8.0); NEUTROPHILS % 87.5 % (40.0-76.0); PLATELET 273 x1000/uL (130-400); RED BLOOD CELL COUNT 4.33 mill/uL (4.2-5.4); RED CELL DISTRIBUTION WIDTH 18.4 % (11.6-14.6); UREA NITROGEN BLOOD 27 mg/dL (9-23); WHITE BLOOD COUNT 13.3 x1000/uL (4.5-11.0)
[2024-04-19 15:37] LABS: TROPONIN I HIGH SENSITIVITY 27 ng/L (3.0-34)
[2024-04-19 15:40] LABS: HCG SCREEN NEGATIVE
[2024-04-19 15:42] LABS: INR 0.9; PROTHROMBIN TIME 10.3 sec (9.6-11.0)
[2024-04-19] MEDS: ACETAMINOPHEN 325MG TABLET PO ONE (16:00)
[2024-04-19] MEDS: LIDOCAINE 5% PATCH TOP SCH (16:00)
[2024-04-19 16:17] VITALS: BP 143/89; PULSE 93; RESP 16; TEMP 37.00296; O2SAT 96
[2024-04-22] MEDS ORDERED: P20 PO (15:55)
[2024-04-22] MEDS ORDERED: QUET300T20 PO (15:57)
[2024-04-22] MEDS ORDERED: AMLO5TAB88 PO (15:58)
[2024-04-22] MEDS ORDERED: BELI200A SUBCUT (16:02)
[2024-04-22] MEDS ORDERED: ONDA-239 PO (16:03)
== END 2024-04-19 17:15 | disposition home or self-care (01) ==
LOC: ER 13:14
DX: R07.89 Other chest pain (principal); I11.0 Hypertensive heart disease with heart failure; I50.9 Heart failure, unspecified; E78.5 Hyperlipidemia, unspecified; F19.90 Other psychoactive substance use, unspecified, uncomplicated; Z79.899 Other long term (current) drug therapy; Z85.528 Personal history of other malignant neoplasm of kidney; Z86.73 Personal history of transient ischemic attack (TIA), and cerebral infarction without residual deficits; Z88.1 Allergy status to other antibiotic agents; Z88.7 Allergy status to serum and vaccine; Z88.2 Allergy status to sulfonamides; Z98.890 Other specified postprocedural states
CPT/HCPCS: 36415; 71045; 80048; 83880; 84484; 84703; 85025; 93005; 99285

== ENCOUNTER 2024-06-20 08:42 | Emergency (ER) | payer MEDICAID ==
[~2024-06-20] VITALS: Ht 165.1 cm; Wt 84.0 kg
[~2024-06-20 08:42] MED LIST changes: -AMLO10TA80 PO; +AMLO5TAB88 PO; +AMOX1TAB16 PO; +ATOR-388 MT; -ATOR80TA MT; +BELI200A SUBCUT; -FURO-151 MT; +GABA-1180 PO; -GABA-532 PO; +ONDA-239 PO; +P20 PO; -PRED10TA PO; -QUET100T34 PO; +QUET300T20 PO
[2024-06-20 08:49] VITALS: TEMP 98.1; O2SAT 97
[2024-06-20 10:42] VITALS: BP 148/93; PULSE 106; RESP 18
[2024-06-20] MEDS: CELECOXIB 200MG CAPSULE PO ONE (10:42)
[2024-06-20] MEDS: HYDROCODONE/ACETAMINOPHEN 5/325MG TABLET PO PRN (10:42)
[2024-06-20] MEDS: DEXAMETHASONE 4MG/ML 1ML VIAL IM ONE (10:42)
[2024-06-20] MEDS ORDERED: TRAM50TA3 MT (10:50)
== END 2024-06-20 11:29 | disposition home or self-care (01) ==
LOC: ER 08:42
DX: S92.341A Displaced fracture of fourth metatarsal bone, right foot, initial encounter for closed fracture (principal); I10 Essential (primary) hypertension; M19.90 Unspecified osteoarthritis, unspecified site; F10.90 Alcohol use, unspecified, uncomplicated; Z79.82 Long term (current) use of aspirin; Z79.899 Other long term (current) drug therapy; Z86.73 Personal history of transient ischemic attack (TIA), and cerebral infarction without residual deficits; Z88.1 Allergy status to other antibiotic agents; Z88.2 Allergy status to sulfonamides; Z88.7 Allergy status to serum and vaccine; C80.1 Malignant (primary) neoplasm, unspecified; W18.41XA Slipping, tripping and stumbling without falling due to stepping on object, initial encounter; Y93.89 Activity, other specified; Y92.89 Other specified places as the place of occurrence of the external cause; Y99.8 Other external cause status
CPT/HCPCS: 73610; 73630; 29515; 96372; 99284; J1100; Z7610

== ENCOUNTER 2024-11-30 09:56 | Emergency (ER) | payer MEDICAID ==
[~2024-11-30] VITALS: Ht 165.1 cm; Wt 83.9 kg
[~2024-11-30 09:56] MED LIST changes: +TRAM50TA3 MT
[2024-11-30 09:58] VITALS: BP 142/108; TEMP 36.9; O2SAT 98
[2024-11-30 10:00] VITALS: PULSE 104; RESP 16; O2SAT 98
[2024-11-30 10:27] LABS: BASOPHILS % 0.7 % (0.0-2.0); EOSINOPHILS % 0.5 % (0.0-5.0); HEMATOCRIT. 36.5 % (36.0-48.0); MEAN CORPUSCULAR HEMOGLOBIN 29.5 pg (28.0-32.0); MEAN CORPUSCULAR HGB CONC 32.9 g/dL (31.0-37.0); MEAN CORPUSCULAR VOLUME 89.7 fL (81.0-99.0); MEAN PLATELET VOLUME 7.9 fl (7.4-10.4); MONOCYTES % 7.6 % (2.0-8.0); NEUTROPHILS % 64.2 % (40.0-76.0); PLATELET 261 x1000/uL (130-400); RED BLOOD CELL COUNT 4.06 mill/uL (4.2-5.4); RED CELL DISTRIBUTION WIDTH 17.4 % (11.6-14.6)
[2024-11-30 10:36] LABS: POTASSIUM 4.4 mEq/L (3.5-5.1)
[2024-11-30 10:42] LABS: CREATININE 2.1 mg/dL (0.6-1.0)
[2024-11-30] MEDS: ACETAMINOPHEN 500MG TABLET PO ONE (12:03)
== END 2024-11-30 13:00 | disposition home or self-care (01) ==
LOC: ER 09:56
DX: G89.29 Other chronic pain (principal); M25.552 Pain in left hip; I10 Essential (primary) hypertension; Z88.7 Allergy status to serum and vaccine; Z88.2 Allergy status to sulfonamides; Z88.1 Allergy status to other antibiotic agents; Z79.82 Long term (current) use of aspirin; Z98.890 Other specified postprocedural states; Z79.899 Other long term (current) drug therapy; Z96.641 Presence of right artificial hip joint; Z86.73 Personal history of transient ischemic attack (TIA), and cerebral infarction without residual deficits
CPT/HCPCS: 36415; 73502; 80048; 85025; 99284

== ENCOUNTER 2025-07-05 16:29 | Emergency (ER) | payer MEDICAID ==
[~2025-07-05] VITALS: Ht 170.2 cm; Wt 88.0 kg
[~2025-07-05 16:29] MED LIST changes: -AMOX1TAB16 PO; +IBUP-1455 PO; -IBUP-2029 PO
[2025-07-05 16:36] VITALS: O2SAT 98
[2025-07-05] MEDS: MORPHINE SULFATE 4 MG/ML INJ (FOR IV/IM USE) IV ONE (17:34)
[2025-07-05] MEDS: ONDANSETRON HCL 4MG/2ML INJ IV ONE (17:34)
[2025-07-05] MEDS: SODIUM CHLORIDE 0.9% 1,000 ML IV ONE (17:34)
[2025-07-05] MEDS: KETOROLAC 15MG/ML VIAL IV ONE (17:35)
[2025-07-05 18:07] LABS: BASOPHILS % 0.5 % (0.0-2.0); EOSINOPHILS % 0.3 % (0.0-5.0); HEMATOCRIT. 40.2 % (36.0-48.0); HEMOGLOBIN. 12.8 g/dL (12.0-16.0); LYMPHOCYTES % 34.8 % (20.0-50.0); MEAN PLATELET VOLUME 8.4 fl (7.4-10.4); MONOCYTES % 9.8 % (2.0-8.0); NEUTROPHILS % 54.6 % (40.0-76.0); PLATELET 274 x1000/uL (130-400); RED BLOOD CELL COUNT 4.58 mill/uL (4.2-5.4); RED CELL DISTRIBUTION WIDTH 16.7 % (11.6-14.6)
[2025-07-05 18:20] LABS: CREATININE 2.8 mg/dL (0.6-1.0)
[2025-07-05 18:21] LABS: PROTEIN TOTAL 7.9 g/dL (6.0-8.3); UREA NITROGEN BLOOD 26 mg/dL (9-23)
[2025-07-05 18:22] LABS: ASPARTATE AMINOTRANSFERASE 24 IU/L (<34)
[2025-07-05 18:23] LABS: BILIRUBIN DIRECT < 0.1 mg/dL (<=3.0); BILIRUBIN TOTAL 0.2 mg/dL (0.1-1.0)
[2025-07-05] MEDS ORDERED: HYDROMORPHONE HCL/PF 2MG/ML INJ IV ONE (19:00)
[2025-07-05] MEDS: METOCLOPRAMIDE HCL 10MG/2ML VIAL IV ONE (19:10)
[2025-07-05] MEDS: HYDROMORPHONE HCL/PF 1MG/ML INJ IV SCH (19:20)
[2025-07-05 20:33] LABS: CLARITY URINE CLEAR (CLEAR); COLOR URINE YELLOW (YELLOW); GLUCOSE URINE NEGATIVE (NEGATIVE); KETONES URINE NEGATIVE (NEGATIVE); LEUKOCYTE ESTERASE URINE 1+ (NEGATIVE); NITRITE URINE NEGATIVE (NEGATIVE); OCCULT BLOOD URINE 1+ (NEGATIVE); PH URINE 5.5 (4.5-8.0); PROTEIN URINE 3+ (NEGATIVE); SPECIFIC GRAVITY URINE 1.016 (1.005-1.030); UROBILINOGEN URINE 0.2 E.U./dL (0.2-1.0)
[2025-07-05 20:58] LABS: BACTERIA URINE 2+; SQUAMOUS EPITHELIAL CELL URINE 1+ /lpf (RARE/1+)
[2025-07-05 21:16] VITALS: BP 151/95; PULSE 88; RESP 24; TEMP 36.8; O2SAT 97
== END 2025-07-05 21:54 | disposition short-term general hospital (02) ==
LOC: ER 16:29 → CMPBEDREQ 23:30
DX: R10.9 Unspecified abdominal pain (principal); R11.2 Nausea with vomiting, unspecified; N17.9 Acute kidney failure, unspecified; I10 Essential (primary) hypertension; Z79.899 Other long term (current) drug therapy; Z86.73 Personal history of transient ischemic attack (TIA), and cerebral infarction without residual deficits; Z88.1 Allergy status to other antibiotic agents; Z88.2 Allergy status to sulfonamides; Z88.7 Allergy status to serum and vaccine
CPT/HCPCS: 99285; 74176; 96374; 96375; 96361; 80076; 80048; 81003; 83690; 83735; 85025; 36415; 93005; J1885; J2765; J2405; J1171; J2270; J7030